=== PATIENT | female | born 1935 | race Caucasian/White ===

== ENCOUNTER 2019-05-28 16:05 | Emergency (ER) | payer MEDICARE ==
[2019-05-28 16:32] VITALS: BP 186/69
[2019-05-28] MEDS ORDERED: methylPREDNISolone ACETATE 80* 80 MG/ML 1 ML VIAL IM ONE (16:58)
--- NOTE | 2019-05-28 17:03 | UC ---
Skin Complaint HPI - HPI Summary HPI Summary: Pt complaining of itching all over, kept her up all night. Has small red spots on arms and legs (groin/thigh). Has been using calamine lotion with minimal relief. Also c/o chills and at times nauseous with no vomiting. Appetite is poor. States she occasionally feels like she might pass out.Denies any changes to soaps or diet. - History of Current Complaint Chief Complaint: UCSkin Time Seen by Provider: 05/28/19 16:47 Stated Complaint: ITCHY RASH/CHILLS/NAUSEA Hx Obtained From: Patient ?: No Onset/Duration: Sudden Onset, Lasting Days Skin Exposure Onset/Duration: Days Ago Timing: Constant Onset Severity: Mild Current Severity: Moderate Pain Intensity: 0 Location: Generalized Character: Swelling, Pruritus, Hives Aggravating Factor(s): Humidity, Touch Alleviating Factor(s): Nothing Associated Signs & Symptoms: Positive: Cough, Rash - Allergy/Home Medications Allergies/Adverse Reactions: Allergies Allergy/AdvReac Type Severity Reaction Status Date / Time No Known Allergies Allergy Verified 05/28/19 16:32 Home Medications: Home Medications Amlodipine Besylate [Amlodipine 2.5 mg tab] 5 mg PO DAILY 05/28/19 [History Confirmed 05/28/19] Atorvastatin* [Lipitor*] 40 mg PO DAILY 05/28/19 [History Confirmed 05/28/19] Fosinopril Sodium 40 mg PO DAILY 05/28/19 [History Confirmed 05/28/19] Metoprolol Succinate [Metoprolol Succinate ER] 25 mg PO DAILY 05/28/19 [History Confirmed 05/28/19] PMH/Surg Hx/FS Hx/Imm Hx Previously Healthy: Yes - Surgical History Surgical History: None - Family History Known Family History: Positive: Hypertension - Social History Alcohol Use: None Substance Use Type: None Smoking Status (MU): Never Smoked Tobacco Review of Systems All Other Systems Reviewed And Are Negative: Yes Skin: Positive: Rash ENT: Positive: Sore Throat, Ear Ache, Nasal Discharge Respiratory: Positive: Cough Is Patient Immunocompromised?: No Physical Exam Triage Information Reviewed: Yes Appearance: Well-Nourished, Ill-Appearing, Pain Distress Vital Signs: Initial Vital Signs Temp 98.4 F 05/28/19 16:24 Pulse 55 05/28/19 16:24 Resp 18 05/28/19 16:24 BP 186/69 05/28/19 16:24 Pulse Ox 98 05/28/19 16:24 Vital Signs Reviewed: Yes Eye Exam: Normal ENT: Positive: Pharyngeal erythema, TMs normal Dental Exam: Normal Neck exam: Normal Respiratory: Positive: Chest non-tender, Lungs clear, Normal breath sounds Cardiovascular: Positive: RRR, No Murmur, Pulses Normal Abdominal Exam: Normal Musculoskeletal Exam: Normal Neurological Exam: Normal Psychological Exam: Normal Skin: Positive: Rashes - hives in groin, butocks, hands and behind knes, recently starting on neck Course/Dx - Course Course Of Treatment: hx obtained, exam performed ,meds reviewed, patient has had cold ans sore throat symtpoms for the past 2 weeks. she was taking alot of nyquil. that is the only change she can think of. has developed hives in multiple areas of her body. still has sore throat and cold symtpoms - Differential Diagnoses - Skin Complaint Differential Diagnoses: Urticaria - Diagnoses Provider Diagnosis: Urticaria Discharge ED - Discharge Plan Referrals: Savita Waterman MD [Primary Care Provider] -
== END 2019-05-28 17:44 | disposition home or self-care (01) ==
LOC: UCCORT 16:05
DX: L50.9 Urticaria, unspecified (principal); R21 Rash and other nonspecific skin eruption; J02.9 Acute pharyngitis, unspecified; R05 Cough; J34.89 Other specified disorders of nose and nasal sinuses; H92.09 Otalgia, unspecified ear
CPT/HCPCS: 87651; 96372; 99202; G0463; J1040